=== PATIENT | female | born 1955 | race Hispanic/Latino ===

== ENCOUNTER 2016-11-27 21:33 | Emergency (ER) | payer SELFPAY ==
[~2016-11-27] VITALS: Ht 162.6 cm; Wt 83.8 kg
[~2016-11-27 21:33] MED LIST: ATIVAN0.5 MG PO; FERROUS SULF325 M1 PO; FLEXERIL PO; LORAZEPAM0.5 MG PO; LORTAB 10-325 M1 TAB PO; LORTAB5 PO; SYNTHROID112 MCG PO; VISTARIL25 MG PO; XANAX0.5 MG PO; ZESTRIL10 M1 PO; ZOFRAN ODT4 MG PO; no home meds
[2016-11-27] MEDS ORDERED: ROBITUSSIN AC10 ML PO (23:45)
[2016-11-27] MEDS ORDERED: CEPHALEXIN500 MG PO (23:45)
[2016-11-27 23:49] VITALS: BP 171/95
== END 2016-11-27 23:56 | disposition home or self-care (01) | DRG 153 ==
LOC: ED 21:33
DX: J06.9 Acute upper respiratory infection, unspecified (principal); R52 Pain, unspecified; R05 Cough

== ENCOUNTER 2017-03-22 09:18 | Emergency (ER) | payer SELFPAY ==
[~2017-03-22] VITALS: Ht 162.6 cm; Wt 66.0 kg
[~2017-03-22 09:18] MED LIST changes: +CEPHALEXIN500 MG PO; +ROBITUSSIN AC10 ML PO
[2017-03-22] MEDS ORDERED: ATIVAN0.5 MG PO (09:46)
[2017-03-22] MEDS ORDERED: NAPROSYN500 MG PO (11:34)
[2017-03-22] MEDS ORDERED: FLEXERIL PO (11:34)
[2017-03-22 12:45] VITALS: BP 140/73
== END 2017-03-22 12:45 | disposition home or self-care (01) | DRG 552 ==
LOC: ED 09:18
DX: M47.817 Spondylosis without myelopathy or radiculopathy, lumbosacral region (principal); M41.9 Scoliosis, unspecified; M62.830 Muscle spasm of back

== ENCOUNTER 2017-05-13 13:02 | Emergency (ER) | payer SELFPAY ==
[~2017-05-13] VITALS: Ht 162.6 cm; Wt 77.0 kg
[~2017-05-13 13:02] MED LIST changes: +NAPROSYN500 MG PO
[2017-05-13 14:20] LABS: HEMATOCRIT 37.7 % (37.0-47.0); HEMOGLOBIN 12.3 g/dl (12.0-16.0); IMMATURE GRANULOCYTES 0.5 % (0.0-1.0); MEAN CORPUSCULAR HGB 30.5 pG CALC (26.0-32.0); MEAN CORPUSCULAR HGB CONC 32.6 g/L CALC (32.0-36.0); NEUT# 5.59 thou/uL (2.00-7.15); RED BLOOD COUNT 4.03 mill/uL (4.20-5.60); RED CELL DISTRI WIDTH 12.4 % (11.5-15.5)
[2017-05-13 14:24] LABS: MEAN CELL VOLUME 93.5 fL CALC (80.0-100.0)
[2017-05-13 14:40] LABS: ALBUMIN 3.4 g/dL (3.2-5.0); ALKALINE PHOSPHATASE 94 u/l (38-126); AMYLASE < 30 u/l (30-110); ANION GAP 15 (6-22 (CALC)); BILIRUBIN, TOTAL 0.8 mg/dL (0.0-1.4); BUN 14 mg/dL (8-23); BUN/CREATININE RATIO 21 (12-20 (CALC)); CARBON DIOXIDE 25 mmol/l (22-30); CHLORIDE 105 mmol/l (95-108); CREATININE 0.7 mg/dL (0.5-1.0); GFR > 60 ML/MIN (>=60 (CALC)); GFR FOR AFR.AMER. > 60 ML/MIN (>=60 (CALC)); LIPASE 64 u/l (23-300); SGOT/AST 33 u/l (9-36); SGPT/ALT 36 u/l (11-66); SODIUM 141 mmol/l (137-146); TOTAL PROTEIN 7.1 g/dL (6.3-8.2)
[2017-05-13 16:31] LABS: URINE BILIRUBIN - DIPSTICK NEGATIVE (NEGATIVE); URINE BLOOD DIPSTICK NEGATIVE (NEGATIVE); URINE COLOR YELLOW; URINE GLUCOSE - DIPSTICK NEGATIVE (NEGATIVE); URINE KETONE NEGATIVE (NEGATIVE); URINE LEUK ESTERASE NEGATIVE (NEGATIVE); URINE NITRITE - DIPSTICK NEGATIVE (Negative); URINE PROTEIN - DIPSTICK NEGATIVE (NEG-TRACE); URINE UROBILINOGEN - DIPSTICK 0.2 E.U./dL (0.2)
[2017-05-13 16:39] LABS: URINE CLARITY CLEAR
[2017-05-13] MEDS ORDERED: CIPROFLOXACN500 MG PO ×2 (17:28→17:58)
[2017-05-13] MEDS ORDERED: TESSALON PER100 MG PO ×2 (17:28→17:58)
[2017-05-13] MEDS ORDERED: ZOFRAN ODT4 MG PO ×2 (17:28→17:58)
[2017-05-13 17:43] LABS: INFLUENZA A NONE DETECTED (NONE DETECT); INFLUENZA B NONE DETECTED (NONE DETECT)
[2017-05-13 17:49] VITALS: BP 121/68
== END 2017-05-13 18:05 | disposition home or self-care (01) | DRG 392 ==
LOC: ED 13:02
PROVIDERS: Emergency Medicine
DX: R11.2 Nausea with vomiting, unspecified (principal); I10 Essential (primary) hypertension; K52.9 Noninfective gastroenteritis and colitis, unspecified; R05 Cough; R50.9 Fever, unspecified; R10.33 Periumbilical pain

== ENCOUNTER 2017-07-22 21:48 | Emergency (ER) | payer SELFPAY ==
[~2017-07-22] VITALS: Ht 162.6 cm; Wt 79.0 kg
[~2017-07-22 21:48] MED LIST changes: +CIPROFLOXACN500 MG PO; +TESSALON PER100 MG PO
[2017-07-22] MEDS ORDERED: NAPROSYN500 MG PO (23:04)
[2017-07-22 23:14] VITALS: BP 127/70
== END 2017-07-22 23:12 | disposition home or self-care (01) | DRG 563 ==
LOC: ED 21:48
DX: S43.402A Unspecified sprain of left shoulder joint, initial encounter (principal); S83.92XA Sprain of unspecified site of left knee, initial encounter; W01.0XXA Fall on same level from slipping, tripping and stumbling without subsequent striking against object, initial encounter; Y93.89 Activity, other specified; Y92.512 Supermarket, store or market as the place of occurrence of the external cause

== ENCOUNTER → 2018-05-09 | Outpatient (REF) | payer OTHER ==
[~2018-05-09] MED LIST changes: +CYCLOBENZAPR10 MG PO; +DICLOFENAC SODI75 M1 PO; +LISINOPRIL20 M1 PO; +MEDDOSEPAK PO; +PERCOCET 5/325M1 TAB PO
== END | disposition home or self-care (01) ==
LOC: DI 14:12 → LAB 14:12
PROVIDERS: ATTEND Physician Assistant
DX: M54.5 Low back pain (principal)

== ENCOUNTER 2018-05-10 16:12 | Emergency (ER) | payer OTHER ==
[~2018-05-10] VITALS: Ht 162.6 cm; Wt 72.7 kg
[~2018-05-10 16:12] MED LIST changes: -CYCLOBENZAPR10 MG PO; -DICLOFENAC SODI75 M1 PO; -LISINOPRIL20 M1 PO; -MEDDOSEPAK PO; -PERCOCET 5/325M1 TAB PO
[2018-05-10] MEDS ORDERED: DICLOFENAC SODI75 M1 PO (17:15)
[2018-05-10] MEDS ORDERED: CYCLOBENZAPR10 MG PO (17:16)
[2018-05-10] MEDS ORDERED: LISINOPRIL20 M1 PO (17:17)
[2018-05-10] MEDS ORDERED: MEDDOSEPAK PO (17:17)
[2018-05-10] MEDS ORDERED: PERCOCET 5/325M1 TAB PO (17:44)
[2018-05-10] MEDS ORDERED: FLEXERIL PO (17:44)
[2018-05-10 18:02] VITALS: BP 141/95
== END 2018-05-10 18:01 | disposition home or self-care (01) ==
LOC: ED 16:12
DX: S39.012A Strain of muscle, fascia and tendon of lower back, initial encounter (principal); M54.5 Low back pain

== ENCOUNTER 2020-07-10 05:31 | Observation (INO) | payer SELFPAY ==
[~2020-07-10] VITALS: Ht 162.6 cm; Wt 88.0 kg
[~2020-07-10 05:31] MED LIST changes: +CYCLOBENZAPR10 MG PO; +DICLOFENAC SODI75 M1 PO; +LISINOPRIL20 M1 PO; +MEDDOSEPAK PO; +PERCOCET 5/325M1 TAB PO
--- NOTE | 2020-07-10 05:31 | NUR ---
PT VAGUE WITH C/O. EMS BROUGHT PT IN AND STATES THAT HER BP WAS HIGH
--- NOTE | 2020-07-10 06:03 | NUR ---
PT VAGUE WITH COMPLAINTS ON ARRIVAL JUST KEEPS REPEATING KATIE WILSON JESUS. SLOW TO ANSWER QUESTIONS OFTEN HAVE TO ASK TWICE, THEN WHEN CORPORATE RECEPTIONIST WENT INTO GIVE HER MEDICTAION ORDERED I TOLD HER I WAS GIVNING HER XANAX FOR ANXIETY AND SHE QUICKLY DECLINES STATING NO THATS NOT WHAT I TAKE, OLEARY ASKED WHAT SHE TAKES SHE STATES "START NAMING SOME ANXIETY MEDICATIONS, THEN STATES SHE TAKES ATIVAN 0.5 MG AT HOME" ALSO ASKS IF HER DAUGHTER IS HERE YET. NOTIFIED OF PATIENT REFUSAL OF XANAX AND REQUEST FOR ATIVAN.
[2020-07-10 06:14] LABS: HEMATOCRIT 39.3 % (37.0-47.0); HEMOGLOBIN 12.8 g/dl (12.0-16.0); IMMATURE GRANULOCYTES 0.1 % (0.0-5.0); MEAN CELL VOLUME 91.4 fL CALC (80.0-100.0); MEAN CORPUSCULAR HGB 29.8 pG CALC (26.0-32.0); MEAN CORPUSCULAR HGB CONC 32.6 g/dL CAL (32.0-36.0); NEUT# 3.63 thou/uL (2.00-7.15); RED BLOOD COUNT 4.3 mill/uL (4.20-5.60); RED CELL DISTRI WIDTH 12.4 % (11.5-15.5)
[2020-07-10] MEDS ORDERED: ANXIETY MED (06:19)
[2020-07-10 06:27] LABS: ALKALINE PHOSPHATASE 83 u/l (38-126); ANION GAP 14 (6-22 (CALC)); BILIRUBIN, TOTAL 0.8 mg/dL (0.0-1.4); BUN 11 mg/dL (8-23); BUN/CREATININE RATIO 20 (12-20 (CALC)); CARBON DIOXIDE 26 mmol/l (22-30); CHLORIDE 101 mmol/l (95-108); CREATININE 0.6 mg/dL (0.5-1.0); GFR > 60 ML/MIN (>=60 (CALC)); GFR FOR AFR.AMER. > 60 ML/MIN (>=60 (CALC)); LIPASE 110 u/l (23-300); POTASSIUM 3.6 mmol/l (3.5-5.1); SGOT/AST 23 u/l (9-36); SODIUM 138 mmol/l (137-146)
[2020-07-10 06:38] LABS: ALBUMIN 4.2 g/dL (3.2-5.0); TOTAL PROTEIN 8.8 g/dL (6.3-8.2)
--- NOTE | 2020-07-10 06:39 | NUR ---
MEDICATED ORDERED FOR ANXIETY. CALL DE [facility] WITHIN REACH AMND VISITOR AT BEDSIDE.
--- NOTE | 2020-07-10 07:04 | NUR ---
recived for care, resting quietly, awaiting admission.
--- NOTE | 2020-07-10 07:54 | NUR ---
report called to Jessie CARRILLO in SBAR format
--- NOTE | 2020-07-10 08:15 | NUR ---
transferred to [facility] 278 VIA WC SAFELY. IV INTACT UPON ARRIVAL.
--- NOTE | 2020-07-10 08:20 | NUR ---
PT ARRIVED TO MED SURG FLOOR VIA WC IN STABLE CONDITION ACCOMPANIED BY ER NURSE GERARDO PRADO;PT AMBULATED TO BATHROOM AND THEN TO BED WITH STEADY GAIT;PT HAS NO REPORTS OF PAIN AT THIS TIME;VS AND ASSESSMENT WERE COMPLETED;ALLERGY BANDS PLACED ON PT;INVENTORY BELONGING SHEET COMPLETED;PT ORIENTED TO CALL LIGHT SYSTEM, TV AND BED;HEART SOUNDS REGULAR IN RATE AND RHYTHM;LUNG SOUNDS ARE CLEAR;RESPIRATIONS ARE EVEN AND UNLABORED ON RA;TELE IS IN PLACE;EMS #20G IV IN LAC IS SL,PATENT AND FREE OF COMPLICATIONS AT THIS TIME;PT SKIN IS INTACT;NO EDEMA PRESENT;PERIPHERAL PULSES ARE STRONG;ABDOMINAL SOUNDS ARE ACTIVE IN ALL QUADRANTS;SAFETY PRECATIONS IN PLACE;CALL LIGHT WITHIN REACH;WILL CONTINUE TO MONITOR.
[2020-07-10 08:30] VITALS: BP 149/84
[2020-07-10 09:05] LABS: URINE BILIRUBIN - DIPSTICK NEGATIVE (NEGATIVE); URINE BLOOD DIPSTICK NEGATIVE (NEGATIVE); URINE COLOR YELLOW; URINE GLUCOSE - DIPSTICK NEGATIVE (NEGATIVE); URINE KETONE NEGATIVE (NEGATIVE); URINE LEUK ESTERASE NEGATIVE (NEGATIVE); URINE PH 6.5 (4.5-8.0); URINE PROTEIN - DIPSTICK NEGATIVE (NEG-TRACE); URINE UROBILINOGEN - DIPSTICK 0.2 E.U./dL (0.2)
[2020-07-10 09:06] LABS: URINE NITRITE - DIPSTICK NEGATIVE (Negative)
[2020-07-10] MEDS ORDERED: LOPRESSOR25 MG PO (10:26)
[2020-07-10 10:44] VITALS: BP 117/68
--- NOTE | 2020-07-10 12:00 | NUR ---
PT WAS FOUND RESTING IN BED EATING LUNCH;TELE IS IN PLACE;PT INSTRUCTED TO CALL WITH ANY NEEDS:SAFETY PRECAUTIONS IN PLACE;CALL LIGHT WITHIN REACH;BED IN LOWEST POSITION;WILL CONTINUE TO MONITOR
--- NOTE | 2020-07-10 13:12 | NUR ---
Discharge instructions given. Patient verbalizes understanding of same. Discharged in stable condition via Wheelchair to Home with family. All belongings sent with pt. DISCHARGE PACKET WAS GIVEN TO PT;DISCHARGE INSTRUCTIONS AND MEDICATIONS WERE EXPLAINED TO PT;PT EXPRESSED UNDERSTANDING AND SIGNATURE WAS OBTAINED;TELE WAS REMOVED;IV WAS REMOVED WITHOUT COMPLICATIONS AND CATHETER INTACT PT WAS TRANSPORTED TO [facility] IN STABLE CONDITION VIA ACCOMPANIED BY STAFF;ALL BELONGINGS WERE SENT WITH PT;PT WILL BE TRANSPORTED HOME WITH FAMILY.
== END 2020-07-10 13:12 | disposition home or self-care (01) | DRG 313 ==
LOC: ED 05:31 → ED-I 06:10 → ED 06:47 → MS2 06:48
PROVIDERS: Emergency Medicine; ADMIT Internal Medicine; ATTEND Internal Medicine
DX: R07.2 Precordial pain (principal); R00.2 Palpitations; I10 Essential (primary) hypertension; F41.0 Panic disorder [episodic paroxysmal anxiety]; E03.9 Hypothyroidism, unspecified; Z20.822 Contact with and (suspected) exposure to COVID-19
CPT/HCPCS: G0378; J2060

== ENCOUNTER 2021-09-01 16:40 | Emergency (ER) | payer MEDICARE, MEDICAID ==
[~2021-09-01] VITALS: Ht 162.6 cm; Wt 90.7 kg
[~2021-09-01 16:40] MED LIST changes: +ANXIETY MED; +LOPRESSOR25 MG PO
[2021-09-01 17:30] VITALS: BP 149/88
[2021-09-01] MEDS ORDERED: NAPROXEN500 MG PO (18:57)
[2021-09-01] MEDS ORDERED: HYDROCO/APAP1 TA9 PO (18:57)
[2021-09-01] MEDS ORDERED: METHOCARBAMOL500 MG PO (18:57)
[2021-09-01 20:02] VITALS: BP 136/72
== END 2021-09-01 20:22 | disposition home or self-care (01) ==
LOC: ED 16:40
DX: S39.012A Strain of muscle, fascia and tendon of lower back, initial encounter (principal); I10 Essential (primary) hypertension; X50.0XXA Overexertion from strenuous movement or load, initial encounter